=== PATIENT | female | born 1980 | race Two or more races ===

== ENCOUNTER 2021-03-13 11:30 | Inpatient (IN) | payer OTHER ==
[~2021-03-13] VITALS: Ht 160 cm; Wt 68.5 kg
[2021-03-23] MEDS ORDERED: INTESTINEX680 M1 PO (10:18)
[2021-03-23] MEDS ORDERED: ULTRAM50 MG PO (10:18)
[2021-03-23] MEDS ORDERED: LEVSIN/SL0.125 MG SL (10:18)
== END 2021-03-23 10:45 | disposition home or self-care (01) | DRG 331 ==
LOC: SURH 03-20 07:00 → O/R 03-20 10:00 → SURH 03-20 11:30
PROVIDERS: ADMIT Surgery; ATTEND Surgery
PROC: 07TB4ZZ Resection of Mesenteric Lymphatic, Percutaneous Endoscopic Approach (ICD-10-PCS; 2021-03-20)
PROC: 3E0F7SF Introduction of Other Gas into Respiratory Tract, Via Natural or Artificial Opening (ICD-10-PCS; 2021-03-20)
PROC: 0DTF4ZZ Resection of Right Large Intestine, Percutaneous Endoscopic Approach (ICD-10-PCS; principal; 2021-03-20 12:30)
DX: D12.2 Benign neoplasm of ascending colon (principal); R59.0 Localized enlarged lymph nodes; R19.4 Change in bowel habit